=== PATIENT | male | born 1970 | race Caucasian/White ===

== ENCOUNTER → 2022-03-22 | Outpatient (CLI) | payer BC | LOC: MRI 11:03 | PROVIDERS: ATTEND Specialist | DX: M54.16 Radiculopathy, lumbar region (principal) | CPT/HCPCS: 72148 ==

== ENCOUNTER 2022-04-01 07:49 | Day surgery (SDC) | payer BC ==
[2022-03-30 12:57] LABS: BASOPHILS # (AUTO) 0.1 (0.0-0.1); BASOPHILS % 0.7 % (0.0-1.0); EOSINOPHILS # (AUTO) 0.2 (0.0-0.4); HEMATOCRIT 50.8 % (38.2-49.6); HEMOGLOBIN 15.5 g/dL (14.0-18.0); LYMPHOCYTES # (AUTO) 2.2 (1.0-3.2); LYMPHOCYTES % 32.7 % (18.0-39.1); MEAN CORPUSCULAR HEMOGLOBIN 23.9 pg (28-32); MEAN CORPUSCULAR HGB CONC 30.5 g/dL (31-35); MEAN CORPUSCULAR VOLUME 78.3 fL (81-99); MONOCYTES # (AUTO) 0.4 (0.2-0.8); MONOCYTES % 6.3 % (4.4-11.3); NEUTROPHILS # (AUTO) 3.8 (2.1-6.9); NEUTROPHILS % 57.2 % (38.7-80.0); PLATELET COUNT 239 x10e3/uL (140-360); RED BLOOD COUNT 6.49 x10e6/uL (4.3-5.7); RED CELL DISTRIBUTION WIDTH 18.6 % (11.7-14.4)
[2022-03-30 13:09] LABS: INR 0.91; PROTHROMBIN TIME 13.1 seconds (11.9-14.5)
[2022-03-30 13:10] LABS: PARTIAL THROMBOPLASTIN TIME 26.7 seconds (23.8-35.5)
[2022-03-30 13:15] LABS: ANION GAP 15.1 mmol/L (8-16); CALCIUM 9.5 mg/dL (8.4-10.2); CREATININE, SERUM 1.08 mg/dL (0.72-1.25); POTASSIUM 4.1 mmol/L (3.5-5.1)
[~2022-04-01 07:49] MED LIST: ARIMIDEX1 MG PO; BORON CITRATE1 GM PO; CHROMIUM400 MCG PO; CIALIS2.5 MG PO; CYCLOBENZAPRINE10 MG PO; LIDOCAINE 2% /EPINEPHRINE 20 ML SDV INJ ONE; MAGNESIUM250 M2 PO; MELATONIN3 MG PO; MINOXIDIL2.5 MG PO; MULTI-VITAMIN1 EACH PO; NAPROXEN250 MG PO; TESTOSTERO100 MG/1 M SC; THROMBIN FOR SOLN 5,000 UNIT VIAL ONE; VITAMIN A10000 UNIT PO; VITAMIN B-121000 MCG PO; VITAMIN B-650 MG PO; VITAMIN C1000 MG PO; VITAMIN D3 COM1 EACH PO; VITAMIN K240 MCG PO; Vancomycin IV 1 GM VIAL ONE; ZINC CHELATED50 M2 PO
[2022-04-01] MEDS ORDERED: HYDROCODON-ACE1 EA12 PO (09:24)
[2022-04-01] MEDS ORDERED: MAGNESIUM/ALUMINUM/SIMETHICONE 30 ML UDC PO PRN (09:30)
[2022-04-01] MEDS ORDERED: OXYCODONE/ACETAMINOPHEN 5-325 1 EACH TABLET PO PRN (09:30)
[2022-04-01] MEDS ORDERED: PROMETHAZINE HCL (IM) 25 MG/ML VIAL IM PRN (09:30)
[2022-04-01] MEDS ORDERED: ACETAMINOPHEN 325 MG TAB PO PRN (09:30)
[2022-04-01] MEDS ORDERED: CARISOPRODOL 350 MG TAB PO PRN (09:30)
[2022-04-01] MEDS ORDERED: Morphine 4mg INJECTION 4 MG/ML INJ IM PRN (09:30)
[2022-04-01] MEDS ORDERED: HYDROMORPHONE 2MG/ML 2 MG/ML ML IV PRN (09:30)
[2022-04-01] MEDS ORDERED: ONDANSETRON HCL INJ 2MG/ML 2ML 2 MG/ML VIAL IV PRN (09:30)
[2022-04-01] MEDS ORDERED: FENTANYL CITRATE/PF 100MCG/2 ML INJ ONE (12:20)
[2022-04-01] MEDS ORDERED: Morphine 10mg syringe 10 MG/ML INJ ONE (12:20)
[2022-04-01] MEDS ORDERED: MIDAZOLAM HCL 2 MG/2 ML VIAL ONE (12:20)
[2022-04-01] MEDS ORDERED: HYDROCODONE/APAP 10MG-325MG TAB ONE (12:29)
[2022-04-01 12:30] VITALS: BP 117/72
[2022-04-01] MEDS ORDERED: SEVOFLURANE INHAL SOLN 250 ML PEN BTL ONE (13:10)
[2022-04-01] MEDS ORDERED: POVIDONE IODINE 0.05% 0.05 % ML PO ONE (13:10)
[2022-04-01] MEDS ORDERED: GLYCOPYRROLATE INJ 0.2 MG/ML VIAL ONE (13:10)
[2022-04-01] MEDS ORDERED: PROPOFOL IV EMULSION 10 MG/ML 20 ML VIAL ONE (13:10)
[2022-04-01] MEDS ORDERED: KETOROLAC TROMETHAMINE 30 MG/ML VIAL ONE (13:10)
[2022-04-01] MEDS ORDERED: ROCURONIUM BROMIDE 10 MG/ML 5ML VIAL IV ONE (13:10)
[2022-04-01] MEDS ORDERED: DEXAMETHASONE SOD PHOS INJ 4 MG/ML SDV ONE (13:10)
[2022-04-01] MEDS ORDERED: ONDANSETRON HCL INJ 2MG/ML 2ML 2 MG/ML VIAL ONE (13:10)
[2022-04-01] MEDS ORDERED: NEOSTIGMINE 1 MG/ML 10ML VIAL ONE (13:10)
[2022-04-01] MEDS ORDERED: ACETAMINOPHEN 1000 MG/100 ML IV ONE (13:10)
[2022-04-01] MEDS ORDERED: LACTATED RINGER'S 1,000 ML IV SCH (16:30)
[2022-04-01] MEDS ORDERED: NAPROXEN 250 MG TAB PO SCH (18:00)
[2022-04-01] MEDS ORDERED: CYCLOBENZAPRINE HCL 10 MG TAB PO SCH (21:00)
[2022-04-01] MEDS ORDERED: ZOLPIDEM TARTRATE 5 MG TAB PO PRN (21:00)
[2022-04-02] MEDS ORDERED: ASCORBIC ACID 500 MG TAB PO SCH (09:00)
[2022-04-02] MEDS ORDERED: CYANOCOBALAMIN 1,000 MCG TAB PO SCH (09:00)
[2022-04-02] MEDS ORDERED: MINOXIDIL 2.5 MG TAB PO SCH (09:00)
[2022-04-02] MEDS ORDERED: MULTIVITAMINS/MINERALS TAB PO SCH (09:00)
[2022-04-02] MEDS ORDERED: ANASTROZOLE 1 MG TAB PO SCH (09:30)
== END 2022-04-01 12:50 | disposition home or self-care (01) ==
LOC: OR 07:49 → UNDOADMOB 09:21 → PACU V 09:21
PROVIDERS: ATTEND Neurological Surgery
DX: M51.16 Intervertebral disc disorders with radiculopathy, lumbar region (principal); M43.16 Spondylolisthesis, lumbar region; E78.5 Hyperlipidemia, unspecified; G47.33 Obstructive sleep apnea (adult) (pediatric); Z01.810 Encounter for preprocedural cardiovascular examination; Z01.812 Encounter for preprocedural laboratory examination; Z01.818 Encounter for other preprocedural examination; Z20.822 Contact with and (suspected) exposure to COVID-19
CPT/HCPCS: 0223U; 36415; 63047; 71046; 72020; 80048; 85025; 85610; 85730; 86850; 86900; 88304; 93005; J0690; J2001; J2250; J2270; J2405; J3010; J3370; J1100; J1885; J2710